=== PATIENT | female | born 1975 | race Caucasian/White ===

== ENCOUNTER 2016-06-12 19:27 | Emergency (ER) | payer OTHER ==
[2016-06-12 19:37] VITALS: BP 155/85; PULSE 95; TEMP 97.9; BMI 23.6
--- NOTE | 2016-06-12 20:23 | PDOC ---
History of Present Illness - General Chief Complaint: Pain Stated Complaint: CHEST PAIN/LT ARM PAIN Time Seen by Provider: 06/12/16 20:02 History Source: Patient Exam Limitations: No Limitations - History of Present Illness Initial Comments: 06/12/16 20:15 Patient is a 40-year-old female with no past medical history here with complaints of pain to the right upper extremity radiating to her neck and pain to the left chest radiating to her back. 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 States her pain is 9/10 and is worse with movement of the arm or when she touches the areas. She denies any recent travel, no OCP use, negative family history of DVT or PE. PMD: none PMHX: neg PSOCHX: neg cig, neg drugs, neg etoh FAMHX; noncontributory ALL: NKDA GENERAL/CONSTITUTIONAL: [No fever or chills. No weakness. No weight change.] HEAD, EYES, EARS, NOSE AND THROAT: [No change in vision. No ear pain or discharge. No sore throat.] CARDIOVASCULAR: [No chest pain or shortness of breath.] RESPIRATORY: [No cough, wheezing, or hemoptysis.] GASTROINTESTINAL: [No nausea, vomiting, diarrhea or constipation. No rectal bleeding.] GENITOURINARY: [No dysuria, frequency, or change in urination.] MUSCULOSKELETAL: [No joint or muscle swelling or pain. No neck or back pain.] SKIN AND BREASTS: [No rash or easy bruising.] NEUROLOGIC: [No headache, vertigo, loss of consciousness, or loss of sensation.] PSYCHIATRIC: [No depression or anxiety.] ENDOCRINE: [No increased thirst. No abnormal weight change.] HEMATOLOGIC/LYMPHATIC: [No anemia, easy bleeding, or history of blood clots.] ALLERGIC/IMMUNOLOGIC: [No hives or skin allergy. No latex allergy.] GENERAL: [The patient is awake, alert, and fully oriented, in no acute distress. ] HEAD: [Normal with no signs of trauma.] EYES: [Pupils equal, round and reactive to light, extraocular movements intact, sclera anicteric, conjunctiva clear.] ENT: [Ears normal, nares patent, oropharynx clear without exudates. Moist mucous membranes.] NECK: [Normal range of motion, supple without lymphadenopathy, JVD, or masses.] LUNGS: [Breath sounds equal, clear to auscultation bilaterally. No wheezes, and no crackles.] HEART: [Regular rate and rhythm, normal S1 and S2 without murmur, rub, tendernss to the left chest wall to palp.] ABDOMEN: [Soft, nontender, normoactive bowel sounds. No guarding, no rebound. No masses.] EXTREMITIES: decreaed range of motion right upper ext due to pain, (+) tenderness to the right shoulder, right neck muscles and arm, no edema. No clubbing or cyanosis. No cords, erythema, or tenderness.] NEUROLOGICAL: [Cranial nerves II through XII grossly intact. Normal speech, normal gait.] PSYCH: [Normal mood, normal affect.] SKIN: [Warm, Dry, normal turgor, no rashes or lesions noted.] Past History - Past Medical History Allergies/Adverse Reactions: Allergies Allergy/AdvReac Type Severity Reaction Status Date / Time No Known Allergies Allergy Verified 06/12/16 19:37 Home Medications: Ambulatory Orders Diazepam [Valium] 5 mg PO Q8H #7 tablet MDD 3 06/13/16 Naproxen [Naprosyn -] 500 mg PO BID #28 tablet 06/13/16 Other medical history: denies - Psycho/Social/Smoking Cessation Hx Suicidal Ideation: No Smoking History: Never smoked *Physical Exam - Vital Signs Last Vital Signs Temp Pulse Resp BP Pulse Ox 97.9 F 95 H 18 155/85 99 06/12/16 19:35 06/12/16 19:35 06/12/16 19:35 06/12/16 19:35 06/12/16 19:35 Medical Decision Making - Medical Decision Making 06/12/16 20:27 Patient is a 40-year-old female with no past medical history here with complaints of pain to the right upper extremity radiating to her neck and pain to the left chest radiating to her back worsening for the past 2 days. Patient has pain with movement and is suggestive of Muscle pain. Low risk and concern for ACS, and PE. will treat with Motrin and Flexeril EKG, CXR. re-assess 06/12/16 21:41 EKG SR rate 71, NAD, (-) ST-T changes neg chest xray re-assesed still c/o pain [place] to the neck when she moves given Ultram 50mg po 06/12/16 23:01 Still c/o pain to the neck given Valium 5mg po 06/13/16 00:08 Patient is feeling better symptoms resolved I discussed the physical exam findings, ancillary test results and final diagnoses with the patient. I answered all of the patient's questions. The patient was satisfied with the care received and felt comfortable with the discharge plan and treatment plan. The Patient agrees to follow up with the primary care physician within 24-72 hours. *DC/Admit/Observation/Transfer Diagnosis at time of Disposition: Muscle spasm - Discharge Dispostion Disposition: HOME Condition at time of disposition: Stable - Prescriptions Prescriptions: Naproxen [Naprosyn -] 500 mg PO BID #28 tablet Diazepam [Valium] 5 mg PO Q8H #7 tablet MDD 3 - Patient Instructions Printed Discharge Instructions: DI for Torticollis Additional Instructions: I discussed the physical exam findings, ancillary test results and final diagnoses with the patient. I answered all of the patient's questions. The patient was satisfied with the care received and felt comfortable with the discharge plan and treatment plan. The Patient agrees to follow up with the primary care physician within 24-72 hours.
[2016-06-12] MEDS ORDERED: CYCLOBENZAPRINE HCL 10 MG TABLET (FP) PO ONE (20:24)
[2016-06-12] MEDS ORDERED: IBUPROFEN 600 MG TABLET (FP) PO ONE ×2 (20:26→20:29)
[2016-06-12] MEDS ORDERED: CYCLOBENZAPRINE HCL 10 MG TABLET (FP) ONE (20:29)
[2016-06-12] MEDS ORDERED: traMADol HCL 50 MG TABLET PO ONE (21:54)
[2016-06-12] MEDS ORDERED: traMADol HCL 50 MG TABLET ONE (22:14)
[2016-06-12] MEDS ORDERED: diazePAM 5 MG TABLET PO ONE (23:00)
[2016-06-12] MEDS ORDERED: diazePAM 5 MG TABLET ONE (23:20)
--- NOTE | 2016-06-13 14:38 | EKG ---
Test Reason : Blood Pressure : / mmHG Vent. Rate : 071 BPM Atrial Rate : 071 BPM P-R Int : 154 ms QRS Dur : 086 ms QT Int : 390 ms P-R-T Axes : 058 064 052 degrees QTc Int : 423 ms NORMAL SINUS RHYTHM WITH SINUS ARRHYTHMIA NORMAL ECG NO PREVIOUS ECGS AVAILABLE Confirmed by FEMI LAWS MD ([id number]) on 06/13/2016 2:38:24 PM Referred By: Confirmed By:FEMI LAWS MD
== END 2016-06-13 00:30 | disposition home or self-care (01) ==
LOC: JER 19:27
DX: M62.838 Other muscle spasm (principal); M70.812 Other soft tissue disorders related to use, overuse and pressure, left shoulder; Y93.89 Activity, other specified
CPT/HCPCS: 71020-TC; 93005; 93010; 99285-25

== ENCOUNTER 2017-04-11 12:32 | Emergency (ER) | payer OTHER ==
[2017-04-11] MEDS ORDERED: METOCLOPRAMIDE HCL INJECTION 10 MG/2 ML VIAL IVPUSH ONE (13:08)
[2017-04-11] MEDS ORDERED: MECLIZINE HCL 25 MG TABLET (FP) PO ONE (13:08)
[2017-04-11] MEDS ORDERED: ACETAMINOPHEN 500 MG TABLET (FP) PO ONE (13:15)
[2017-04-11] MEDS ORDERED: SODIUM CHLORIDE 1,000 ML IV STA (13:15)
--- NOTE | 2017-04-11 13:16 | PDOC ---
History of Present Illness - General Chief Complaint: Lightheaded Stated Complaint: Lightheaded Time Seen by Provider: 04/11/17 12:48 - History of Present Illness Initial Comments: 04/11/17 13:24 The patient is a 41 year old female with no significant PMH who presents for evaluation of headache, dizziness with associated nausea and vomiting. The patient reports sudden onset of dizziness that she describes as the room spinning 1 week ago when getting up from the bathroom. She reports an associated throbbing headache throughout this time as well. She reports persistent symptoms that have not improved prompting her presentation to the ED today. She reports some associated nausea, and occasional episodes of non- bilious, non-bloody vomiting. She denies fevers, chills, SOB, chest pain, abdominal pain, or changes with urination or bowel movements. Past History - Past Medical History Allergies/Adverse Reactions: Allergies Allergy/AdvReac Type Severity Reaction Status Date / Time No Known Allergies Allergy Verified 04/11/17 12:40 Home Medications: Ambulatory Orders Amoxicillin - [Amoxicillin 500mg Capsule -] 500 mg PO TID #21 capsule 04/11/17 Meclizine HCl [Antivert -] 12.5 mg PO TID PRN #21 tablet 04/11/17 - Suicide/Smoking/Psychosocial Hx Smoking History: Never smoked Review of Systems - Review of Systems Comments:: 04/11/17 13:27 Constitutional: No fevers, chills, fatigue, malaise HEENT: No Rhinorrhea, nasal congestion, visual changes Cardiovascular: No chest pain, syncope, palpitations, lightheadedness Respiratory: No Cough, SOB, Hemoptysis, Gastrointestinal: Nausea, vomiting. No Abdominal pain, Constipation, Diarrhea, Melena Genitourinary: No Dysuria, Frequency, Urgency, Hesitancy, Hematuria, Flank pain Musculoskeletal: No Myalgia, arthralgia Skin: No rashes, bruising, pallor Neurologic: Headache, Dizziness. No Numbness, Weakness, or Tingling Psychiatric: No Hallucinations. No SI or HI *Physical Exam - Physical Exam Comments: 04/11/17 13:29 General Appearance: Nourished. No Apparent Distress HEENT: EOMI, DIONE. Mild right gaze horizontal nystagmus. No Pharyngeal Erythema , Tonsillar Exudate, Tonsillar Erythema Neck: No Cervical Lymphadenopathy Respiratory/Chest: Lungs Clear, Normal Breath Sounds. No Crackles, Rales, Rhonchi, Wheezing Cardiovascular: Regular Rhythm, Regular Rate. No Murmur, Gallops, Rubs Gastrointestinal/Abdominal: Normal Bowel Sounds, Soft. No Guarding, Rebound, Tenderness Musculoskeletal: No CVA Tenderness Extremity: Normal Capillary Refill Integumentary: Normal Color, Dry, Warm Neurologic: regional marketing director II-XII NML intact, Fully Oriented, Alert, Normal Mood/Affect, Normal Response, Motor Strength 5/5. Normal Finger to Nose and Heel to [facility] ED Treatment Course - LABORATORY CBC & Chemistry Diagram: 04/11/17 13:35 04/11/17 13:35 - RADIOLOGY Radiology Studies Ordered: Category Date Time Status HEAD CT WITHOUT CONTRAST [CT] Stat CT Scan 04/11/17 13:08 Ordered Medical Decision Making - Medical Decision Making 04/11/17 13:31 The patient is a 41 year old female with no significant PMH who presents for evaluation of headache, dizziness with associated nausea and vomiting. Differential includes but is not limited to: Vertigo, intracranial process, acs , infectious, metabolic derangement. Given the patient's symptoms of dizziness worse with movement, it is likely her symptoms are due to vertigo. However, given her headache we will obtain a head ct to evaluate for intracranial process. The patient has poor effort on exam, but has a non-focal neurological exam. We will also obtain a cbc, cmp, troponin, ua, EKG to evaluate for other etiologies. We will treat with reglan, antivert, tylenol and iv fluids. We will continue to monitor and reassess. 04/11/17 17:47 CBC, cmp, troponin, UA, EKG are unremarkable. CT head does not demonstrate any intracranial process as read by our radiologist although there was concern for possible left ear infection. There was opacity of the left TM concerning for infection which could be contributing to the patient's symptoms. The patient is reporting improvement in her symptoms after medications. We are comfortable discharging the patient home at this time with PCP follow up and a course of amoxacillin. We discussed the results and the plan with the patient who voiced understanding and is agreeable with the plan. *DC/Admit/Observation/Transfer Diagnosis at time of Disposition: Vertigo Otitis media Qualifiers: Otitis media type: unspecified Laterality: left Qualified Code(s): H66.92 - Otitis media, unspecified, left ear - Discharge Dispostion Disposition: HOME Condition at time of disposition: Improved Admit: No - Prescriptions Prescriptions: Amoxicillin - [Amoxicillin 500mg Capsule -] 500 mg PO TID #21 capsule Meclizine HCl [Antivert -] 12.5 mg PO TID PRN #21 tablet PRN Reason: dizziness - Referrals Referrals: Sagar Bradshaw MD [Primary Care Provider] - - Patient Instructions Printed Discharge Instructions: Middle Ear Infection, DI for Vertigo Additional Instructions: Please return to the ER if you experience concerning or worsening symptoms including worsening headache, fevers, or weakness. You were seen in the ER for headache and dizziness. Your lab results and CT scan were normal. Your symptoms are likely due to an ear infection. We have sent antibiotics to your pharmacy that you should take 3 times a day for 7 days. We have also sent a prescription for anti-dizziness medication that you can take 3 times a day as needed. Please call to schedule a follow up appointment with your primary care provider to discuss your visit and further management of your symptoms. Por favor regrese a la eunice de emergencias si experimenta o empeora los sntomas , incluyendo el empeoramiento del dolor de keven, fiebre o debilidad. Te vieron en urgencias por dolor de keven y mareos. Los resultados del laboratorio y la tomografa computarizada fueron normales. Es probable que fadi sntomas se deban a mary jane infeccin del odo. Hemos enviado antibiticos a ahuja farmacia que usted debe linus 3 veces al da mindy 7 pearl. Tambin hemos enviado mary jane prescripcin de medicamentos contra el mareo que usted puede linus 3 veces al da segn sea necesario. Por favor llame para programar mary jane sharonda de seguimiento con ahuja proveedor de atencin primaria para discutir ahuja visita y la administracin de fadi sntomas. Print Language: PASHTO - Post Discharge Activity
[2017-04-11 13:34] VITALS: TEMP 99; BMI 24.9
[2017-04-11 13:43] LABS: BASOPHIL 0.4 % (0-2.0); EOSINOPHIL 1.7 % (0-4.5); MCH 32.4 pg (25.7-33.7); MCHC 33.5 g/dl (32.0-36.0); MEAN CELL VOLUME 96.6 fl (80-96); MEAN PLT VOLUME 7.5 fl (7.5-11.1); NEUTROPHILS 49.8 % (42.8-82.8); PLATELET COUNT 287 K/MM3 (134-434); RDW 12.8 % (11.6-15.6); WHITE BLOOD COUNT 6.7 K/mm3 (4.0-10.0)
[2017-04-11] MEDS ORDERED: METOCLOPRAMIDE HCL INJECTION 10 MG/2 ML VIAL ONE (13:45)
[2017-04-11] MEDS ORDERED: MECLIZINE HCL 25 MG TABLET (FP) ONE (13:45)
[2017-04-11] MEDS ORDERED: ACETAMINOPHEN 325 MG TABLET (FP) ONE (13:45)
[2017-04-11 14:18] LABS: ALBUMIN 4.1 g/dl (3.4-5.0); ALK PHOS 38 U/L (45-117); ANION GAP 8 (8-16); BILIRUBIN,TOTAL 0.6 mg/dL (0.2-1.0); CALCIUM 8.1 mg/dL (8.5-10.1); CO2 25 mmol/L (21-32); CPK 98 IU/L (26-192); CREATININE 0.7 mg/dL (0.55-1.02); GLUCOSE,RANDOM 79 mg/dL (74-106); SGOT/AST 9 U/L (15-37); SGPT/ALT 17 U/L (12-78); TOT PROT 8.1 g/dl (6.4-8.2)
[2017-04-11 14:20] LABS: TROPONIN I < 0.02 ng/ml (0.00-0.05)
[2017-04-11 14:33] LABS: URINE APPEARANCE CLEAR; URINE BILIRUBIN NEGATIVE (NEGATIVE); URINE BLOOD 2+ (NEGATIVE); URINE COLOR LTYELLOW; URINE GLUCOSE (UA) NEGATIVE (NEGATIVE); URINE KETONE 1+ (NEGATIVE); URINE NITRITE NEGATIVE (NEGATIVE); URINE PROTEIN NEGATIVE (NEGATIVE); URINE UROBILINOGEN NEGATIVE mg/dL (0.2-1.0)
[2017-04-11 14:53] LABS: URINE MUCUS RARE; URINE RBC 8; URINE WBC < 1
--- NOTE | 2017-04-11 15:17 | PDOC ---
Attending Attestation - Resident Resident Name: Mac Bhakta - ED Attending Attestation I have performed the following: I have examined & evaluated the patient, The case was reviewed & discussed with the resident, I agree w/resident's findings & plan, Exceptions are as noted - HPI HPI: 04/11/17 15:10 41-year-old female patient with no past medical history presents with generalized weakness, dizziness and light headedness for one week. Patient reports persistent symptoms of feeling dizziness particularly with standing up and turning the head. Denies prior history of strokes. Denies recent illnesses, fevers, chills, cough, vomiting. Patient did endorse vomiting today. Came into the ED for further evaluation. - Physicial Exam PE: 04/11/17 15:17 GENERAL: Awake, alert, and fully oriented, in no acute distress. HEAD: No signs of trauma EYES: PERRLA, EOMI, sclera anicteric, conjunctiva clear. No nystagmus appreciated. ENT: Auricles normal inspection, hearing grossly normal, nares patent NECK: Normal ROM. LUNGS: Breath sounds equal, clear to auscultation bilaterally. No wheezes, and no crackles HEART: Regular rate and rhythm, normal S1 and S2, no murmurs, rubs or gallops ABDOMEN: Soft, nontender, normoactive bowel sounds. No guarding, no rebound. No masses EXTREMITIES: Normal range of motion, no edema. No clubbing or cyanosis. No cords, erythema, or tenderness NEUROLOGICAL: Cranial nerves II through XIIintact. Normal speech, 5/5 strength upper and lower extremities. Sensation intact throughout. 5/5 strength upper strength and lower extremity strength. Finger to nose normal. SKIN: Warm, Dry, normal turgor, no rashes or lesions noted. - Medical Decision Making 04/11/17 15:19 Vital Signs Temp Pulse Resp BP Pulse Ox 99.0 F 69 20 108/77 100 04/11/17 13:00 04/11/17 13:00 04/11/17 13:00 04/11/17 13:00 04/11/17 13:00 The patient is neurologically intact but appears generally fatigue and weak. At this time, I do not suspect a central cause of this dizziness and suspect that there may be components of peripheral vertigo. However, pt complains of headache and dizziness, I agree with plan to obtain a head CT to look for intracranial pathology such as a mass. Will trial GERD medications and reassess. IVF, labs, UA, and reassess. 04/11/17 17:36 CBC, BMP 04/11/17 13:35 04/11/17 13:35 CMP Sodium 138 mmol/L (136-145) 04/11/17 13:35 Potassium 4.0 mmol/L (3.5-5.1) 04/11/17 13:35 Chloride 105 mmol/L (98-107) 04/11/17 13:35 Carbon Dioxide 25 mmol/L (21-32) 04/11/17 13:35 Anion Gap 8 (8-16) 04/11/17 13:35 BUN 14 mg/dL (7-18) 04/11/17 13:35 Creatinine 0.7 mg/dL (0.55-1.02) D 04/11/17 13:35 Creat Clearance w eGFR > 60 (>60) 04/11/17 13:35 Random Glucose 79 mg/dL (74-106) 04/11/17 13:35 Calcium 8.1 mg/dL (8.5-10.1) L 04/11/17 13:35 Total Bilirubin 0.6 mg/dL (0.2-1.0) 04/11/17 13:35 AST 9 U/L (15-37) L D 04/11/17 13:35 ALT 17 U/L (12-78) 04/11/17 13:35 Alkaline Phosphatase 38 U/L (45-117) L 04/11/17 13:35 Creatine Kinase 98 IU/L (26-192) 04/11/17 13:35 Troponin I < 0.02 ng/ml (0.00-0.05) 04/11/17 13:35 Total Protein 8.1 g/dl (6.4-8.2) 04/11/17 13:35 Albumin 4.1 g/dl (3.4-5.0) 04/11/17 13:35 Serum , Qual Negative 04/11/17 13:18 Pt reports feeling significantly better. THe CT scan shows likely chronic/acute left ear inflammation. which on my otoscope exam, demonstrates some erythema. I suspect that the left ear infection is causing peripheral vertigo. Pt is tolerating PO. Will d/c with amoxicillin Heart Score/ECG Review #1 ECG reviewed & interpreted by me at: 14:10 04/11/17 15:21 NSR 69, no std/bettye, normal axis, normal intervals, QTC 430 msec. good R wave progression.
--- NOTE | 2017-04-11 17:21 | EKG ---
Test Reason : Blood Pressure : / mmHG Vent. Rate : 069 BPM Atrial Rate : 069 BPM P-R Int : 142 ms QRS Dur : 080 ms QT Int : 402 ms P-R-T Axes : 031 066 044 degrees QTc Int : 430 ms NORMAL SINUS RHYTHM NORMAL ECG WHEN COMPARED WITH ECG OF 12-JUN-2016 20:44, NO SIGNIFICANT CHANGE WAS FOUND Confirmed by DU GRANADOS MD ([id number]) on 04/11/2017 5:21:09 PM Referred By: Confirmed By:DU GRANADOS MD
[2017-04-11 18:01] VITALS: BP 96/51; PULSE 80
[2017-04-11 20:07] LABS: URINE LEUK ESTERASE Negative (NEGATIVE)
== END 2017-04-11 18:01 | disposition home or self-care (01) ==
LOC: JER 12:32
PROC: 3E0337Z Introduction of Electrolytic and Water Balance Substance into Peripheral Vein, Percutaneous Approach (ICD-10-PCS; principal; 2017-04-11)
PROC: 3E033GC Introduction of Other Therapeutic Substance into Peripheral Vein, Percutaneous Approach (ICD-10-PCS; 2017-04-11)
DX: R42 Dizziness and giddiness (principal); H66.92 Otitis media, unspecified, left ear
CPT/HCPCS: 36415; 70450-TC; 80053; 81003; 81015; 82550; 84484; 84703; 85025; 93005; 93010; 96361; 96374; 99284-25